=== PATIENT | female | born 1995 | race Asian ===

== ENCOUNTER 2017-10-03 10:33 | Inpatient (IN) | payer MEDICAID ==
[~2017-10-03] VITALS: Ht 157.5 cm; Wt 43.5 kg
[2017-10-03 10:40] VITALS: BP 117/75
--- NOTE | 2017-10-03 10:46 | NUR ---
PT AMBULATES TO BED 3
--- NOTE | 2017-10-03 10:49 | NUR ---
C/O UPPER/PERIUMBILICAL PAIN 6/10 SINCE MIDNIGHT LAST NIGHT ASSOCIATED WITH ONE EPISODE OF N/V YELLOW LIQUID THIS MORNING. DENIES FEVER . SKIN IS PINK/WARM/DRY; AAOX4 WITH EVEN AND STEADY GAIT; LUNGS CLEAR BL; HR EVEN AND REGULAR; PT DENIES ANY FEVER, CP, SOB, OR COUGH AT THIS TIME; PATIENT STATES PAIN OF 6/10 AT THIS TIME; VSS; PATIENT POSITIONED FOR COMFORT; HOB ELEVATED; BEDRAILS UP X2; BED DOWN. ER MD MADE AWARE OF PT STATUS.
[2017-10-03] MEDS ORDERED: ONDANSETRON 4 MG ODT PO ONE (11:55)
[2017-10-03] MEDS ORDERED: KETOROLAC 60 MG/2 ML VIAL IM ONE (11:55)
[2017-10-03] MEDS ORDERED: NACL 0.9% 1,000 ML IV SCH (11:57)
[2017-10-03] MEDS ORDERED: ONDANSETRON 4 MG/2 ML VIAL IVP ONE ×2 (12:00→20:39)
[2017-10-03] MEDS ORDERED: KETOROLAC 30 MG/ML VIAL IVP ONE (12:00)
[2017-10-03 12:19] LABS: BASOPHILS % (AUTO) 0.1 % (0.0-2.0); EOSINOPHILS % (AUTO) 0.1 % (0.0-4.0); HEMOGLOBIN 14.7 g/dL (12.0-16.0); LYMPHOCYTES # (AUTO) 0.9 K/uL (2.5-16.5); LYMPHOCYTES % (AUTO) 5.9 % (20.5-51.1); MEAN CORPUSCULAR HEMOGLOBIN 30 pg (27-31); MEAN CORPUSCULAR HGB CONC 33 g/dL (33-37); MEAN CORPUSCULAR VOLUME 88.5 fL (80-94); MONOCYTES # (AUTO) 0.7 K/uL (0.8-1.0); MONOCYTES % (AUTO) 4.8 % (1.7-9.3); NEUTROPHILS # (AUTO) 13.6 K/uL (1.8-7.7); NEUTROPHILS % (AUTO) 89.1 % (42.2-75.2); PLATELET COUNT (AUTO) 225 K/uL (140-450); RED BLOOD CELL COUNT(AUTO) 4.97 MIL/uL (4.20-5.40); RED CELL DISTRIBUTION WIDTH 12.6 % (11.6-13.7); WHITE BLOOD COUNT (AUTO) 15.3 K/uL (4.5-11.0)
[2017-10-03 12:25] LABS: APPEARANCE,URINE SL CLOUDY (CLEAR); BILIRUBIN,URINE NEGATIVE (NEGATIVE); BLOOD, URINE NEGATIVE (NEGATIVE); COLOR,URINE YELLOW (YELLOW); LEUKOCYTE ESTERASE ,URINE TRACE (NEGATIVE); NITRITE, URINE NEGATIVE (NEGATIVE); UGLUCOSE NEGATIVE (NEGATIVE)
--- NOTE | 2017-10-03 12:31 | NUR ---
PT LEFT FOR ABD CT PER TECH VIA WHEELCHAIR.
[2017-10-03 12:37] LABS: ALBUMIN 4.6 g/dL (3.4-5.0); ANION GAP 9.9 (8-16); CARBON DIOXIDE 28.2 mmol/L (21-32); CREATININE 0.5 mg/dL (0.6-1.3); POTASSIUM 4.1 mmol/L (3.5-5.1); TOTAL BILIRUBIN 0.9 mg/dL (0.0-1.0)
[2017-10-03 12:37] LABS: RBC,URINE 0-5 (RARE) /HPF (0-5); WBC,URINE 0-5 (RARE) /HPF (0-5)
--- NOTE | 2017-10-03 12:46 | NUR ---
PT BACK TO BED3.
--- NOTE | 2017-10-03 14:14 | NUR ---
PT RESTING IN BED, FAMILY AT BEDSIDE. PT DENIES PAIN AT THIS MOMENT.
[2017-10-03] MEDS ORDERED: DEXT 5% / NACL 0.45% 1,000 ML IV PRN (14:23)
[2017-10-03] MEDS ORDERED: ACETAMINOPHEN 325 MG TAB PO PRN (14:25)
[2017-10-03] MEDS ORDERED: ZOLPIDEM 5 MG TAB PO PRN (14:25)
[2017-10-03] MEDS ORDERED: HYDROcodone/APAP 5/325 MG 1 TAB TAB PO PRN (14:25)
[2017-10-03] MEDS ORDERED: LORazepam 2 MG/ML VIAL IM/IVP PRN (14:25)
[2017-10-03] MEDS ORDERED: ONDANSETRON 4 MG/2 ML VIAL IM/IVP PRN (14:25)
[2017-10-03] MEDS ORDERED: DOCUSATE SODIUM 100 MG GELCAP PO PRN (14:25)
[2017-10-03 14:54] LABS: PROTHROMBIN TIME 9.5 secs (10.8-13.4)
--- NOTE | 2017-10-03 15:00 | NUR ---
PT AWAKE, ALERT,AND ORIENTED. ON ROOM AIR, NO S/S OF RESPIRATORY DISTRESS NOTED. REPORT GIVEN TO LOGAN RN, TRANSFERRED PT TO 125B BY WHEELCHAIR, ACCOMPANIED BY RN AND TECH. FAMILY WITH PT.
--- NOTE | 2017-10-03 15:00 | NUR ---
RECEIVED REPORT FROM ER NURSE KEON AT THE BEDSIDE. PT ADMITTED FROM HOME WITH CC OF ABDOMINAL PAIN SINCE LAST NIGHT. VOMITED YELLOW LIQUID. CT RESULT SHOWS APPENDICITIS. LAURIE PAIN AT THIS TIME. STATES HAS PIAN ON HER RTLQ OF ABDOMEN WHEN SHE MOVES. PT ADMINISTERED TORADOL, ZOFRAN IN ER. PT ABLE TO AMBULATE AND TALK. PLACED BED AT LOWER POSITION. CALL WITH WITH PT , INFORMED HER TO USE THE CALL LIGHT TO ASK FOR ANY HELP. WILL CONTINUE TO MONNITOR PT.
--- NOTE | 2017-10-03 15:05 | NUR ---
PT VS NOTED BP 114/68, O2 SAT 99%, HR 109, PAIN 0/10, RR 18. NO SIGN OF DISTRESS. WILL CONTINUE TO MONITOR PT.
[2017-10-03 15:10] LABS: BARBITURATE, URINE NEG. ng/ml (NEG <=200); BENZODIAZEPINE, URINE NEG. ng/mL (NEG <=200); CANNABINOID, URINE NEG. ng/mL (NEG <=50); COCAINE, URINE NEG. ng/mL (NEG <=300); OPIATE, URINE NEG. ng/mL (NEG <=2000); PHENCYCLIDINE SCREEN,URINE NEG. ng/mL (NEG <=25)
[2017-10-03 15:13] LABS: MAGNESIUM 1.9 mg/dL (1.8-2.4); PHOSPHORUS 3.4 mg/dL (2.5-4.9); THYROID STIMULATING HORMONE 1.57 uIU/mL (0.34-3.74)
[2017-10-03 16:24] VITALS: BP 114/68
--- NOTE | 2017-10-03 19:15 | NUR ---
RECEIVED PT REPORT FROM DAY SHIFT NURSE AT BEDSIDE. PT IN STABLE CONDITION. FAMILY IS AT BEDSIDE. PT IS A/OX4 IV ACCESS IN L AC 20G. IV IS PATENT AND INTACT. PT SKIN IS INTACT. PT SCHEDULED TO HAVE SURGERY TONIGHT. PT HAS NO C/O PAIN AT THIS TIME. BED IS LOCKED, LOW POSITION WITH SIDE RAILS UP X2. BOARD UPDATED. CALL LIGHT IS WITHIN REACH. WILL CONTINUE TO MONITOR.
--- NOTE | 2017-10-03 19:15 | NUR ---
ENDORSED PT TO PM NURSE AT THE BEDSIDE. PT IN STABLE CONDITION.
[2017-10-03] MEDS ORDERED: ROCURONIUM 50 MG/5 ML VIAL IV ONE (20:39)
[2017-10-03] MEDS ORDERED: DEXAMETHASONE 4 MG/ML VIAL IVP ONE (20:39)
[2017-10-03] MEDS ORDERED: SUCCINYLCHOLINE CHLORIDE 200 MG/10 ML VIAL IV ONE (20:39)
[2017-10-03] MEDS ORDERED: GLYCOPYRROLATE 0.2 MG/ML VIAL IV ONE (20:39)
[2017-10-03] MEDS ORDERED: PROPOFOL 200 MG/20 ML VIAL IV ONE (20:39)
[2017-10-03] MEDS ORDERED: DESFLURANE 240 ML BTL INH ONE (20:39)
[2017-10-03] MEDS ORDERED: PHENYLEPHRINE 10 MG/ML VIAL IV ONE (20:39)
[2017-10-03] MEDS ORDERED: LIDOCAINE MPF 2% 100 MG/5 ML VIAL INJ ONE (20:39)
--- NOTE | 2017-10-03 20:40 | NUR ---
OR NURSES HERE TO TAKE PT TO SURGERY.
[2017-10-03] MEDS ORDERED: BUPIVACAINE-MPF/EPI 0.5% 30 ML VIAL INJ ONE (20:49)
[2017-10-03] MEDS ORDERED: MIDAZOLAM 2 MG/2 ML VIAL ONE (20:58)
[2017-10-03] MEDS ORDERED: fentaNYL 0.05 MG/ML VIAL ONE (20:58)
[2017-10-03] MEDS ORDERED: ONDANSETRON 4 MG/2 ML VIAL IVP PRN (21:15)
[2017-10-03] MEDS ORDERED: HYDROmorphone 1 MG/ML AMP IVP PRN (21:15)
[2017-10-03] MEDS: HYDROmorphone PFS 2 MG/ML SYR ONE ×2 (22:12→22:22)
[2017-10-03 22:52] VITALS: BP 111/67
--- NOTE | 2017-10-03 22:52 | NUR ---
PT BACK ON UNIT. PT IN STABLE CONDITION. NO C/O PAIN AT THIS TIME. SURGERY SITE ASSESSED. DRESSING ARE PATENT AND INTACT. WILL CONTINUE TO MONITOR PT.
--- NOTE | 2017-10-03 23:00 | NUR ---
[facility]SA SWAB COLLECTED.
[2017-10-03 23:07] VITALS: BP 99/59
[2017-10-03 23:22] VITALS: BP 101/51
[2017-10-04] VITALS: BP 99/54
[2017-10-04] MEDS: MORPHINE SULFATE 2 MG/ML SYR IVP PRN ×3 (00:13→08:47)
--- NOTE | 2017-10-04 00:13 | NUR ---
PT C/O PAIN. MORPHINE GIVEN. ORDERED 1MG GIVEN AND 1MG WASTED. DOCUMENTED INCORRECTLY IN PYXIS.
[2017-10-04] MEDS: PIPER/TAZO 3.375GM/D5W PREMIX 50 ML IV SCH ×5 (00:14→23:41)
--- NOTE | 2017-10-04 01:58 | NUR ---
PT RESTING COMFORTABLY IN BED. NO S/SX OF DISTRESS. WILL CONTINUE TO MONITOR.
[2017-10-04] MEDS ORDERED: HYDROcodone/APAP 10/325 MG 1 TAB TAB PO PRN (02:05)
[2017-10-04] MEDS: NACL 0.9% 1,000 ML IV SCH ×2 (02:30→23:00)
--- NOTE | 2017-10-04 04:19 | NUR ---
PT C/O PAIN. MORPHINE GIVEN. WILL CONTINUE TO MONITOR PT.
--- NOTE | 2017-10-04 05:32 | NUR ---
SCHEDULED MEDICATION ADMINISTERED. PT TOLERATED WELL. WILL CONTINUE TO MONITOR.
[2017-10-04 05:56] LABS: HEMATOCRIT 38.8 % (36-48); HEMOGLOBIN 12.9 g/dL (12.0-16.0); LYMPHOCYTES # (AUTO) 0.7 K/uL (2.5-16.5); LYMPHOCYTES % (AUTO) 4.8 % (20.5-51.1); MEAN CORPUSCULAR HEMOGLOBIN 30 pg (27-31); MEAN CORPUSCULAR HGB CONC 33 g/dL (33-37); MEAN CORPUSCULAR VOLUME 89.8 fL (80-94); MONOCYTES # (AUTO) 0.1 K/uL (0.8-1.0); MONOCYTES % (AUTO) 0.9 % (1.7-9.3); NEUTROPHILS # (AUTO) 13.2 K/uL (1.8-7.7); NEUTROPHILS % (AUTO) 94.3 % (42.2-75.2); PLATELET COUNT (AUTO) 205 K/uL (140-450); RED BLOOD CELL COUNT(AUTO) 4.32 MIL/uL (4.20-5.40); RED CELL DISTRIBUTION WIDTH 12.6 % (11.6-13.7); WHITE BLOOD COUNT (AUTO) 14.1 K/uL (4.5-11.0)
[2017-10-04 06:18] LABS: MAGNESIUM 1.9 mg/dL (1.8-2.4); PHOSPHORUS 4.5 mg/dL (2.5-4.9)
[2017-10-04 06:23] LABS: CARBON DIOXIDE 20.9 mmol/L (21-32); CREATININE 0.6 mg/dL (0.6-1.3); POTASSIUM 3.9 mmol/L (3.5-5.1)
[2017-10-04 06:32] LABS: CHOL/HDL RATIO 2.4 (1-4.5)
--- NOTE | 2017-10-04 07:19 | NUR ---
ENDORSED PT TO DAY SHIFT NURSE FOR CONTINUITY OF CARE. PT IN STABLE CONDITION.
--- NOTE | 2017-10-04 07:20 | NUR ---
RECEIVED REPORT FROM PM NURSE AT THE BEDSIDE. PT HAS SX OF APPENDIX YESTERDAY. HAS THREE BADNAID AROUND THE INCISION SITE. IVF NS INFUSING AT 50ML/HR . IV SITE ON THE LFT AC 20G. IV SITE INTACT AND PATENT. PT SLEEPING AT THIS TIME. CALL LIGHT WITHIN REACH. NO SIGN OF DISTRESS. WILL CONTINUE TO MONITOR PT.
[2017-10-04 07:58] VITALS: BP 105/44
--- NOTE | 2017-10-04 08:33 | NUR ---
PATIENT HAS BEEN SCREENED AND CATEGORIZED HIGH NUTRITION RISK. PATIENT WILL BE SEEN WITHIN 1-2 DAYS OF ADMISSION. 10/04/17 10/05/[address]
--- NOTE | 2017-10-04 08:51 | NUR ---
ADMINISTERED PAIN MEDS TO PT FOR HER PAIN. PT AWAKE AND WENT TO USE RESTROOM. NO SIGN OF DISTRESS. WILL REASSES PAIN IN HOUR.
[2017-10-04 09:10] LABS: T4 (THYROXINE) 8.5 ug/dL (4.5-12.0)
--- NOTE | 2017-10-04 09:17 | NUR ---
CM NOTE INITIAL REVIEW FAXED TO [facility] [phone] PH# [phone] AND [facility] [phone] KEON PH# [phone]
--- NOTE | 2017-10-04 10:30 | NUR ---
CHECKED ON PT. WITH US TECH. DENIES ANY PAIN AT THIS TIME. NO SIGN OF DISTRESS. FAMILY AT THE BEDSIDE. WILL CONTINUE TO MONITOR PT.
--- NOTE | 2017-10-04 12:18 | NUR ---
ADMINISTERED ZOSYN ORDERED TO PT. COMPLAINING OF PAIN AT THE INCISION SITE. MEDICATED WITH PAIN MEDS. FAMILY AT THE BEDSIDE. NO SIGN OF DISTRESS. CALL LIGHT WITHIN PT REACH. WILL CONTINUE TO MONITOR PT.
--- NOTE | 2017-10-04 13:43 | NUR ---
10/04/17 RD INITIAL ASSESSMENT COMPLETED PLEASE REFER TO NUTRITION ASSESSMENT UNDER CARE ACTIVITY FOR ESTIMATED NUTRITIONAL NEEDS. 1. CONTINUE FULL LIQUID DIET TOLERATED. 2. WHEN POSSIBLE START HIGH CALORIE, LOW FIBER DIET. 3. ENCOURAGE PT TO CONSUME HEALTH SHAKES TID. 4. RD TO FOLLOW-UP 3-5 DAYS, MODERATE RISK. AGUSTIN SINCLA[address] RD
[2017-10-04 16:00] VITALS: BP 100/48
--- NOTE | 2017-10-04 16:15 | NUR ---
CHECKED WITH PT. FAMILY AT THE BEDSIDE. BP 100/48. INCISION SITE INTACT, NO DRAINAGE, NO BLEEDING. INFORMED THAT PT WILL BE SEEN BUTTON MAKER BEFORE SHE CAN BE DISCHARGED TO HOME, DUE TO ELEVATED TROPONIN, TRENDING LOW. NO SIGN OF DISTRESS ON PT. STATES TO HAVE PAIN LEVEL OF 5/10, DENIES TO TAKE MEDS. STATES TO HAVE PAIN TOLERABLE. WILL CONTINUE TO MONITOR PT.
--- NOTE | 2017-10-04 17:44 | NUR ---
ADMINISTERED ZOSYN ORDERED TO PT. TOLERATED WELL. PT HAS DUE CONSULTATION FOR TAMALE MAKER. PT WITH FAMILY. NO SIGN OF DISTRESS. CALL LIGHT WITHIN REACH. WILL CONTINUE TO MONITOR PT.
--- NOTE | 2017-10-04 19:20 | NUR ---
ENDORSED PT TO PM NURSE AT BEDSIDE FOR CONTINUITY OF CARE.PT IN STABLE CONDITION.
--- NOTE | 2017-10-04 19:20 | NUR ---
RECEIVED REPORT FROM DAY SHIFT NURSE AT PT BEDSIDE. PT IN STABLE CONDITION. FAMILY IS AT BEDSIDE. PT IS A/O X4. IV ACCESS IN L AC 20G. IV IS PATENT AND INTACT. PT STATING SHE HAS SOME PAIN BUT IT IS MANAGEABLE AND DOES NOT WISH TO TAKE ANY MEDICINE AT THIS TIME. PT HAS THREE BANDAGES ON ABDOMEN ALL ARE DRY AND INTACT. BED IS LOCKED, LOW POSITION AND SIDE RAILS UP X2. BOARD UPDATED. CALL LIGHT WITHIN REACH. WILL CONTINUE TO MONITOR.
--- NOTE | 2017-10-04 21:30 | NUR ---
PT ASLEEP IN BED. NO SIGNS OF DISTRESS. WILL CONTINUE TO MONITOR.
--- NOTE | 2017-10-04 23:41 | NUR ---
ORDERED MEDICATION ADMINISTERED. WILL CONTINUE TO MONITOR PT.
[2017-10-05] VITALS: BP 105/55
--- NOTE | 2017-10-05 | NUR ---
PT VS WITHIN NORMAL LIMITS. NO C/O PAIN AT THIS TIME. WILL CONTINUE TO MONITOR.
--- NOTE | 2017-10-05 02:10 | NUR ---
PT ASLEEP IN BED. NO SIGNS OF DISTRESS. WILL CONTINUE TO MONITOR PT.
--- NOTE | 2017-10-05 04:38 | NUR ---
NO CHANGE IN CONDITION. WILL CONTINUE TO MONITOR PT.
[2017-10-05] MEDS: PIPER/TAZO 3.375GM/D5W PREMIX 50 ML IV SCH (05:30)
--- NOTE | 2017-10-05 05:30 | NUR ---
ADMINISTERED SCHEDULED ABX. PT TOLERATING WELL. WILL CONTINUE TO MONITOR.
[2017-10-05 06:12] LABS: BASOPHILS % (AUTO) 0.1 % (0.0-2.0); EOSINOPHILS # (AUTO) 0.1 K/uL (0-0.4); EOSINOPHILS % (AUTO) 0.6 % (0.0-4.0); HEMATOCRIT 34.8 % (36-48); HEMOGLOBIN 11.8 g/dL (12.0-16.0); LYMPHOCYTES # (AUTO) 2.7 K/uL (2.5-16.5); LYMPHOCYTES % (AUTO) 24.2 % (20.5-51.1); MEAN CORPUSCULAR HEMOGLOBIN 30 pg (27-31); MEAN CORPUSCULAR HGB CONC 34 g/dL (33-37); MONOCYTES # (AUTO) 0.8 K/uL (0.8-1.0); MONOCYTES % (AUTO) 6.9 % (1.7-9.3); NEUTROPHILS # (AUTO) 7.6 K/uL (1.8-7.7); NEUTROPHILS % (AUTO) 68.2 % (42.2-75.2); PLATELET COUNT (AUTO) 196 K/uL (140-450); RED BLOOD CELL COUNT(AUTO) 3.91 MIL/uL (4.20-5.40); RED CELL DISTRIBUTION WIDTH 12.9 % (11.6-13.7); WHITE BLOOD COUNT (AUTO) 11.1 K/uL (4.5-11.0)
[2017-10-05 06:57] LABS: ANION GAP 11.3 (8-16); CREATININE 0.6 mg/dL (0.6-1.3); POTASSIUM 3.3 mmol/L (3.5-5.1)
--- NOTE | 2017-10-05 07:10 | NUR ---
ENDORSED PT TO DAY SHIFT NURSE FOR CONTINUITY OF CARE. PT IN STABLE CONDITION.
--- NOTE | 2017-10-05 07:11 | NUR ---
RECEIVED REPORT FROM DELIVERY CLERK NURSE AT BEDSIDE FOR CONTINUITY OF CARE. PT IN STABLE CONDITION, A/O X4. IV ACCESS IN L AC 20G, PATENT, ASYMPTOMATIC, AND INTACT, INFUSING IVF WELL. PT STATING SHE HAS SOME PAIN BUT IT IS MANAGEABLE AND DOES NOT WISH TO TAKE ANY MEDICINE AT THIS TIME. PT HAS THREE BANDAGES ON ABDOMEN, S/P APPENDECTOMY AT ON 10/03/17. ALL ARE DRY AND INTACT. BOARD UPDATED. VERBALIZED PLAN OF CARE. PATIENT VERBALIED UNDERSTANDING. SAFETY PRECAUTION IN PLACE, BED IS LOCKED, LOW POSITION AND SIDE RAILS UP X2. CALL LIGHT WITHIN REACH. WILL CONTINUE TO MONITOR PATIENT.
[2017-10-05 08:00] VITALS: BP 111/48
--- NOTE | 2017-10-05 08:12 | NUR ---
DOCTORS MAKING ROUNDS, WILL WAIT FOR THEIR ORDERS.
[2017-10-05] MEDS ORDERED: POTASSIUM CHLORIDE 10 MEQ TABER PO SCH (09:00)
--- NOTE | 2017-10-05 09:04 | NUR ---
PATIENT'S POTASSIUM TODAY 3.3. INFORMED DR. BAH. NEW ORDER IN FOR KDUR 40 MEQ. ORDERED MEDICATIONS GIVEN. PATIENT TOLERATED IT WELL. SAFETY PRECAUTION IN PLACE, CALL LIGHT WITHIN REACH, WILL CONTINUE TO MONITOR PATIENT.
[2017-10-05] MEDS ORDERED: NORC10 PO (09:22)
[2017-10-05] MEDS ORDERED: DOCU-299 PO (09:22)
--- NOTE | 2017-10-05 10:25 | NUR ---
DISCHARGE ORDER IN. INFORMED PATIENT. WILL START ON DISCHARGE PAPERWORK.
--- NOTE | 2017-10-05 10:30 | NUR ---
PATIENT INSTRUCTION AND EDUCATION GIVEN TO PATIENT. SISTER AND MOTHER AT BEDSIDE. THEY ALL VERBALIZED UNDERSTANDING. DISCHARGE PAPERWORK SIGNED. IV REMOVED, IV CATHETER INTACT, MINIMAL BLOOD NOTED. ID BANDS CUT. PATIENT WILL NOW CHANGE AND GET READY TO BE DISCHARGED.
--- NOTE | 2017-10-05 10:55 | NUR ---
PATIENT AMBULATED OFF FLOOR ON STEADY GAIT WITH SISTER AND MOTHER BY HER SIDE. PATIENT TOOK ALL HER BELONGINGS WITH HER. PATIENT IN STABLE CONDITION.
--- NOTE | 2017-10-05 12:10 | NUR ---
CM NOTE CONCURRENT REVIEW AND DC SUMMARY FAXED TO [facility] [phone] PH# [phone] AND [facility] [phone] KEON PH# [phone]
== END 2017-10-05 10:55 | disposition home or self-care (01) | DRG 710 ==
LOC: MED 10:33 → MMU 14:23
PROVIDERS: ADMIT General Practice; ATTEND General Practice
PROC: 0DTJ4ZZ Resection of Appendix, Percutaneous Endoscopic Approach (ICD-10-PCS; principal; 2017-10-03 20:30)
DX: A41.9 Sepsis, unspecified organism (principal); I07.1 Rheumatic tricuspid insufficiency; K35.80 Unspecified acute appendicitis; K29.70 Gastritis, unspecified, without bleeding; N83.201 Unspecified ovarian cyst, right side; R63.6 Underweight; Z68.1 Body mass index [BMI] 19.9 or less, adult
CPT/HCPCS: 36415; 71045; 80048; 80053; 80305; 81001; 81025; 83036; 83605; 83690; 83735; 83880; 84100; 84134; 84436; 84443; 84484; 85025; 85610; 85730; 87040; 87081; 87086; 93005; 96361; 96374; 96375; 99285; J0330; J0690; J1100; J1170; J1885; J2001; J2250; J2270; J2370; J2405; J2543; J2704; J3010; J3490; J7030; J7060; Q0092; Q9967

== ENCOUNTER 2017-10-10 11:33 | Inpatient (IN) | payer MEDICAID ==
[~2017-10-10] VITALS: Ht 154.9 cm; Wt 42.2 kg
[~2017-10-10 11:33] MED LIST: DOCU-299 PO; NORC10 PO
[2017-10-10 11:41] VITALS: BP 103/57
--- NOTE | 2017-10-10 11:46 | NUR ---
PT COMES IN FROM HOME WITH C/O LOWER LEFT ABD PAIN WITH NAUSEA/VOMITTING X 2 TODAY,, REPORTS HAVING AN APPENDECTOMY 7 DAYS AGO AT [facility]. PT PALE IN COLOR, SKIN W/D/I. ABD SOFT, TENDER WITH PALPATION, GUARDING NOTED. BS+ X 4QUADS. DENIES FEVERS/DYSURIA. RESP EVEN AND UNLABORED, IN NAD. REPORTS HVING A BM THIS AM.
--- NOTE | 2017-10-10 11:51 | NUR ---
PT AMBULATED TO ER BED 12.
--- NOTE | 2017-10-10 12:36 | NUR ---
PT RESTING IN BED, NO ACUTE CHNAGE IN CONDITON.
[2017-10-10] MEDS ORDERED: ONDANSETRON 4 MG/2 ML VIAL IVP ONE (13:35)
[2017-10-10] MEDS ORDERED: NACL 0.9% 1,000 ML IV ONE (13:35)
[2017-10-10] MEDS ORDERED: MORPHINE SULFATE 4 MG/ML SYR IVP ONE (13:35)
--- NOTE | 2017-10-10 13:44 | NUR ---
NO VOMITTING WHILE HERE IN ER, IV FLUIDS INFUSING WELL. VSS. PT DENIES ANY PAIN AT THIS TIME, AWAIITNG FURTHER DISPOSITION BY ER MD.
[2017-10-10 14:13] LABS: BASOPHILS % (AUTO) 0.4 % (0.0-2.0); EOSINOPHILS # (AUTO) 0.1 K/uL (0-0.4); EOSINOPHILS % (AUTO) 1.6 % (0.0-4.0); HEMATOCRIT 40.2 % (36-48); HEMOGLOBIN 13.5 g/dL (12.0-16.0); LYMPHOCYTES # (AUTO) 3.1 K/uL (2.5-16.5); LYMPHOCYTES % (AUTO) 43.8 % (20.5-51.1); MEAN CORPUSCULAR HEMOGLOBIN 30 pg (27-31); MEAN CORPUSCULAR HGB CONC 34 g/dL (33-37); MEAN CORPUSCULAR VOLUME 89.4 fL (80-94); MONOCYTES # (AUTO) 0.4 K/uL (0.8-1.0); MONOCYTES % (AUTO) 5.2 % (1.7-9.3); NEUTROPHILS # (AUTO) 3.5 K/uL (1.8-7.7); PLATELET COUNT (AUTO) 315 K/uL (140-450); RED CELL DISTRIBUTION WIDTH 12.3 % (11.6-13.7)
[2017-10-10 14:16] LABS: CARBON DIOXIDE 26.2 mmol/L (21-32); CREATININE 0.6 mg/dL (0.6-1.3); POTASSIUM 3.2 mmol/L (3.5-5.1)
[2017-10-10 14:24] LABS: ALBUMIN 3.9 g/dL (3.4-5.0); TOTAL BILIRUBIN 0.3 mg/dL (0.0-1.0)
--- NOTE | 2017-10-10 16:05 | NUR ---
PT UPDATED ON STATUS AND PLAN OF CARE. PT VERBALIZES UNDERSTANDING AND GIVES CONSENT FOR ADMISSION. BELONGINGS LIST COMPLETED. AWAITING FURTHER ORDERS. CN AWARE.
[2017-10-10] MEDS ORDERED: ACETAMINOPHEN 325 MG TAB PO PRN (16:10)
[2017-10-10] MEDS ORDERED: DOCUSATE SODIUM 100 MG GELCAP PO PRN (16:10)
[2017-10-10] MEDS ORDERED: MORPHINE SULFATE 2 MG/ML SYR IVP PRN (16:10)
[2017-10-10] MEDS ORDERED: HYDROcodone/APAP 5/325 MG 1 TAB TAB PO PRN (16:10)
[2017-10-10] MEDS ORDERED: ONDANSETRON 4 MG/2 ML VIAL IM/IVP PRN (16:10)
[2017-10-10] MEDS ORDERED: LORazepam 2 MG/ML VIAL IM/IVP PRN (16:10)
[2017-10-10] MEDS ORDERED: ZOLPIDEM 5 MG TAB PO PRN (16:10)
--- NOTE | 2017-10-10 16:50 | NUR ---
Patient will be admitted to care of DR SWIFT. Admited to MED/SURG Will go to room. Belongings list completed. Report to .
[2017-10-10 16:56] LABS: PHOSPHORUS 3.8 mg/dL (2.5-4.9); PROTHROMBIN TIME 10.4 secs (10.8-13.4)
[2017-10-10 17:00] VITALS: BP 109/68
--- NOTE | 2017-10-10 17:00 | NUR ---
RECEIVED PATIENT FROM ER. ADMITTED DX COLITIS. C/O ABDOMINAL PAIN FROM HOME. PATIENT IS ALERT AND ORIENTED. DENIES DISCOMFORT AT THIS TIME. DENIES NAUSEA. ON ROOM AIR. IV SITE PATENT AND INTACT. CALL LIGHT WITHIN REACH. PATIENT MADE AWARE OF HOSPITAL ENVIRONMENT. NO ACUTE DISTRESS NOTED.
[2017-10-10 17:04] LABS: BILIRUBIN,URINE NEGATIVE (NEGATIVE); BLOOD, URINE 3+ (NEGATIVE); LEUKOCYTE ESTERASE ,URINE NEGATIVE (NEGATIVE); NITRITE, URINE NEGATIVE (NEGATIVE); PH,URINE 7.5 (5.0-9.0); UGLUCOSE NEGATIVE (NEGATIVE)
[2017-10-10] MEDS ORDERED: KCL 20 MEQ/WATER INJ PREMIX 100 ML IV ONE (17:05)
[2017-10-10] MEDS: DEXT 5% / NACL 0.45% 1,000 ML IV SCH (17:17)
[2017-10-10 17:55] LABS: APPEARANCE,URINE CLOUDY (CLEAR); COLOR,URINE PINK (YELLOW); RBC,URINE TOO NUMEROUS TO COUN /HPF (0-5); WBC,URINE NONE SEEN /HPF (0-5)
[2017-10-10] MEDS ORDERED: MORPHINE SULFATE 2 MG/ML SYR IVP SCH (19:00)
--- NOTE | 2017-10-10 19:11 | NUR ---
PATIENT C/O NAUSEA. MEDICATED ORDERED WITH ZOFRAN IVP. PATIENT CONTINUES TO HAVE NAUSEA, PATIENT HAD EPISODE OF EMESIS OF CLEAR LIQUID INTO BASIN, 350ML NOTED. PATIENT RESTING IN BED. CONTINUES TO HAVE K RIDER.
--- NOTE | 2017-10-10 19:30 | NUR ---
PATIENT SEEN BY DR. DEMPSEY AT BEDSIDE.
--- NOTE | 2017-10-10 19:40 | NUR ---
SBAR REPORT GIVEN TO NIGHT NURSE AT PT BEDSIDE. PATIENT RESTING IN BED, FAMILY AT BEDSIDE. NO S/S OF ACUTE DISTRESS NOTED.
--- NOTE | 2017-10-10 19:41 | NUR ---
RECD. RESTING IN BED, AWAKE, A/OX4. RESPIRATION EVEN AND UNLABORED. K-RIDER INFUSING, LEFT AC G 20. INCISION IN THE ABDOMEN (3), WITH TRUDY, DRY AND INTACT. PLAN OF CARE FOR THE SHIFT DISCUSSED. VERBALIZED UNDERSTANDING. PAIN IN THE ABDOMEN 02/21, STATED TOLERABLE. WILL MEDICATE ORDERED. ON IV ANTIBIOTICS.
[2017-10-10 20:00] VITALS: BP 108/64
--- NOTE | 2017-10-10 20:00 | NUR ---
Patient's Plan of Care was discussed and reviewed with PRODUCT INSPECTION SUPERVISOR: SHERI RENE
--- NOTE | 2017-10-10 21:00 | NUR ---
ASSISTED TO BR TO VOID. INQUIRED IF SHE NEEDS PAIN MEDICATION, STATED "NO". ITALIAN BUT ABLE TO SPEAK AND UNDERSTAND TAJIK. BACK TO BED AFTER VOIDING.
[2017-10-10] MEDS: metroNIDAZOLE 500 MG/NS PREMIX 100 ML IV SCH (21:42)
--- NOTE | 2017-10-10 22:30 | NUR ---
STILL AWAKE, SITTING IN BED USING HER ANNIE PHONE.
[2017-10-11] VITALS: BP 106/65
--- NOTE | 2017-10-11 00:30 | NUR ---
SLEEPING COMFORTABLY IN BED.
[2017-10-11 02:35] LABS: BARBITURATE, URINE NEG. ng/ml (NEG <=200); BENZODIAZEPINE, URINE NEG. ng/mL (NEG <=200); CANNABINOID, URINE NEG. ng/mL (NEG <=50); COCAINE, URINE NEG. ng/mL (NEG <=300); OPIATE, URINE NEG. ng/mL (NEG <=2000); PHENCYCLIDINE SCREEN,URINE NEG. ng/mL (NEG <=25)
[2017-10-11 04:00] VITALS: BP 104/62
--- NOTE | 2017-10-11 04:00 | NUR ---
STILL SLEEPING COMFORTABLY IN BED.
[2017-10-11] MEDS: metroNIDAZOLE 500 MG/NS PREMIX 100 ML IV SCH ×2 (05:23→12:34)
[2017-10-11 06:18] LABS: BASOPHILS % (AUTO) 0.3 % (0.0-2.0); EOSINOPHILS # (AUTO) 0.1 K/uL (0-0.4); EOSINOPHILS % (AUTO) 1.7 % (0.0-4.0); HEMATOCRIT 33.5 % (36-48); HEMOGLOBIN 11.4 g/dL (12.0-16.0); LYMPHOCYTES # (AUTO) 2.3 K/uL (2.5-16.5); LYMPHOCYTES % (AUTO) 30.5 % (20.5-51.1); MEAN CORPUSCULAR HEMOGLOBIN 30 pg (27-31); MEAN CORPUSCULAR HGB CONC 34 g/dL (33-37); MEAN CORPUSCULAR VOLUME 88.5 fL (80-94); MONOCYTES # (AUTO) 0.4 K/uL (0.8-1.0); MONOCYTES % (AUTO) 5.4 % (1.7-9.3); NEUTROPHILS # (AUTO) 4.6 K/uL (1.8-7.7); NEUTROPHILS % (AUTO) 62.1 % (42.2-75.2); PLATELET COUNT (AUTO) 258 K/uL (140-450); RED BLOOD CELL COUNT(AUTO) 3.78 MIL/uL (4.20-5.40); RED CELL DISTRIBUTION WIDTH 12.1 % (11.6-13.7); WHITE BLOOD COUNT (AUTO) 7.4 K/uL (4.5-11.0)
[2017-10-11 06:20] LABS: ANION GAP 9.6 (8-16); CARBON DIOXIDE 26.9 mmol/L (21-32); CREATININE 0.4 mg/dL (0.6-1.3); POTASSIUM 3.5 mmol/L (3.5-5.1)
[2017-10-11 06:24] LABS: PHOSPHORUS 3.8 mg/dL (2.5-4.9)
--- NOTE | 2017-10-11 07:00 | NUR ---
ABLE TO SLEEP WELL. NO N/V, DIARRHEA AND NO COMPLAINT OF ABDOMINAL PAIN DURING SHIFT. CONDITION REMAIN STABLE. WILL ENDORSED TO AM NURSE FOR CONTINUITY OF CARE.
--- NOTE | 2017-10-11 07:10 | NUR ---
ENDORSED TO AM NURSE FOR CONTINUITY OF CARE.
--- NOTE | 2017-10-11 07:12 | NUR ---
Patient's Plan of Care was discussed and reviewed with SOYFREEZE OPERATOR: Esther BERRY
--- NOTE | 2017-10-11 07:12 | NUR ---
ASSUMED CONTINUITY OF CARE. NO SIGNS AND SYMPTOMS OF ACUTE DISTRESS NOTED. INITIAL ASSESSMENT DONE. KEEP COMFORTABLE ON BED. EXPLAINED DIAGNOSIS, PLAN OF CARE, PAIN MANAGEMENT TEACHING, INCISION CARE, USE OF CALL LIGHT/BED/TV/BATHROOM. VERBALIZED UNDERSTANDING. CALL LIGHT WITHIN REACH.
[2017-10-11 08:00] VITALS: BP 94/55
[2017-10-11] MEDS ORDERED: DOCUSATE SODIUM 100 MG GELCAP PO PRN (08:00)
--- NOTE | 2017-10-11 08:43 | NUR ---
PATIENT HAS BEEN SCREENED AND CATEGORIZED HIGH NUTRITION RISK. PATIENT WILL BE SEEN WITHIN 1-2 DAYS OF ADMISSION. 10/11/17 10/12/[address]
[2017-10-11] MEDS: DEXT 5% / NACL 0.45% 1,000 ML IV SCH (08:49)
--- NOTE | 2017-10-11 08:50 | NUR ---
CM NOTE INITIAL REVIEW FAXED TO [facility] [phone] PH# [phone] AND TO [facility] [phone] PH# [phone]
--- NOTE | 2017-10-11 10:15 | NUR ---
DR. DEMPSEY CAME AND SPOKE TO PT. AT BEDSIDE.
[2017-10-11 12:00] VITALS: BP 104/57
--- NOTE | 2017-10-11 13:44 | NUR ---
10/11/17 RD INITIAL ASSESSMENT COMPLETED PLEASE REFER TO NUTRITION ASSESSMENT UNDER CARE ACTIVITY FOR ESTIMATED NUTRITIONAL NEEDS. 1. CONTINUE REGULAR DIET TOLERATED 2. PROVIDED NUTRITION EDUCATION 3. RD TO FOLLOW-UP 5-7 DAYS, LOW RISK AGUSTIN S[address]CLA[address] RD
[2017-10-11] MEDS ORDERED: METR250T2 PO (14:42)
[2017-10-11] MEDS ORDERED: SULF-58 PO (14:42)
[2017-10-11] MEDS ORDERED: LACT10CA1 PO (14:48)
--- NOTE | 2017-10-11 15:15 | NUR ---
EXPLAINED ABOUT MD D/C ORDER, D/C INSTRUCTIONS AND TEACHING, MD'S FOLLOW UP, MD D/C PRESCRIPTION LIST EDUCATION, INCISION CARE, DISEASE MANAGEMENT TEACHING, PAIN MANAGEMENT TEACHING. VERBALIZED UNDERSTANDING.
--- NOTE | 2017-10-11 15:50 | NUR ---
REFUSED USE OF WHEELCHAIR FOR D/C. PT. AMBULATORY AND HAVE STEADY GAIT AND BALANCE. D/C HOME ACCOMPANIED BY PT. FAMILY MEMBER. AWAKE, ALERT, AND ORIENTED X4. SPEECH CLEAR. NO C/O PAIN. NO SOB, NOTED. IN STABLE CONDITION. INFORMED CHARGE NURSE MELODIE MOSER.
--- NOTE | 2017-10-12 08:39 | NUR ---
FAXED DISCHARGE SUMMARY TO [facility] [phone] AND [facility] [phone]
== END 2017-10-11 15:50 | disposition home or self-care (01) | DRG 249 ==
LOC: MED 11:33 → MTU 16:12
PROVIDERS: ADMIT General Practice; ATTEND General Practice
DX: A09 Infectious gastroenteritis and colitis, unspecified (principal); E87.6 Hypokalemia; R63.6 Underweight; R82.4 Acetonuria; K59.00 Constipation, unspecified; Z68.1 Body mass index [BMI] 19.9 or less, adult; Z98.890 Other specified postprocedural states; Z90.49 Acquired absence of other specified parts of digestive tract; Z79.1 Long term (current) use of non-steroidal anti-inflammatories (NSAID); Z79.899 Other long term (current) drug therapy
CPT/HCPCS: 36415; 71045; 80048; 80053; 80305; 81001; 83690; 83735; 84100; 84134; 85025; 85610; 85730; 87040; 87081; 93005; 96361; 96374; 96375; 99285; J0696; J2270; J2405; J3480; J3490; J7060; Q0092